=== PATIENT | female | born 1980 | race Caucasian/White ===

== ENCOUNTER 2017-06-02 13:22 | Emergency (ER) | payer MEDICAID ==
[~2017-06-02] VITALS: Ht 167.6 cm; Wt 56.7 kg
[2017-06-02 14:35] VITALS: BP 125/82
[2017-06-02 14:38] LABS: Basophils # (auto) 0.1 uL; Basophils % (auto) 0.9 % (0.0-2.0); Eosinophils # (auto) 0 uL; Eosinophils % (auto) 0.5 % (0.0-7.0); Hematocrit 42.7 % (36.0-46.0); Hemoglobin 14.1 g/dL (12.2-16.2); Lymphocytes # (auto) 1.3 uL; Lymphocytes % (auto) 16.8 % (10.0-50.0); Mean Corpuscular Hemoglobin 32.3 pg (28.0-32.0); Mean Corpuscular Hgb Conc. 33.1 g/dL (32.0-36.0); Mean Corpuscular Volume 97.5 fL (80.0-100.0); Monocytes # (auto) 0.5 uL; Monocytes % (auto) 6.2 % (0.0-12.0); Neutrophils % (auto) 75.6 % (37.0-80.0); Nucleated Red Blood Cells % 0.1 %; Platelet Count (auto) 193 10^3/uL (140-450); Red Cell Distribution Width 13.8 % (11.8-14.3)
[2017-06-02 14:48] LABS: INR 1.05 (0.9-1.15); Partial Thromboplastin Time 26.4 sec (22.64-33.71); Prothrombin Time 11.4 sec (9.37-12.3)
[2017-06-02 14:56] LABS: Albumin 4.4 g/dL (3.4-5.0); Bilirubin, Total 0.6 mg/dL (0.2-1.0); Calcium 8.7 mg/dL (8.5-10.1); Potassium 3.9 mmol/L (3.5-5.1); Total Protein 7.9 g/dL (6.4-8.2)
== END 2017-06-02 15:29 | disposition home or self-care (01) ==
LOC: ER 13:31
DX: N92.6 Irregular menstruation, unspecified (principal); Z88.6 Allergy status to analgesic agent
CPT/HCPCS: 36415; 80053; 84702; 85025; 85610; 85730